=== PATIENT | female | born 1965 | race Caucasian/White ===

== ENCOUNTER 2023-09-11 08:10 | Observation (INO) | payer BC ==
--- NOTE | 2023-09-11 08:35 | ED ---
General Adult HPI - General Chief complaint: Chest Pain Stated complaint: chest pain Time Seen by Provider: 09/11/23 08:15 Source: patient, RN notes reviewed, old records reviewed Mode of arrival: ambulatory Limitations: no limitations - History of Present Illness Initial comments: 58-year-old female presenting for evaluation of chest pain. Symptom began on Monday which was 2 days prior described as a burning sensation which she thought was reflux. She did have radiation to the upper back with associated lightheadedness. Today symptoms worsened while driving and was associated with some radiation to the left arm as well as nausea. She has no prior history of CAD. - Related Data Allergies Allergy/AdvReac Type Severity Reaction Status Date / Time No Known Allergies Allergy Verified 09/11/23 08:16 Review of Systems ROS Statement: Those systems with pertinent positive or pertinent negative responses have been documented in the HPI. ROS Other: All systems not noted in ROS Statement are negative. Past Medical History Past Medical History: GERD/Reflux, Rheumatoid Arthritis (RA) Additional Past Medical History / Comment(s): Hernia History of Any Multi-Drug Resistant Organisms: None Reported Past Surgical History: Hernia Repair, Orthopedic Surgery Additional Past Surgical History / Comment(s): Cyst Past Psychological History: No Psychological Hx Reported Smoking Status: Never smoker Past Alcohol Use History: None Reported Past Drug Use History: None Reported General Exam Limitations: no limitations General appearance: alert, in no apparent distress Head exam: Present: atraumatic, normocephalic Eye exam: Present: normal appearance, PERRL ENT exam: Present: normal exam Neck exam: Present: normal inspection. Absent: tenderness, meningismus Respiratory exam: Present: normal lung sounds bilaterally. Absent: respiratory distress, wheezes Cardiovascular Exam: Present: regular rate, normal rhythm GI/Abdominal exam: Present: soft. Absent: distended, tenderness Extremities exam: Present: normal inspection, normal capillary refill. Absent: pedal edema Neurological exam: Present: alert, oriented X3, CN II-XII intact. Absent: motor sensory deficit Psychiatric exam: Present: normal affect, normal mood Skin exam: Present: warm, dry, intact Course Vital Signs 09/11/23 08:14 Temperature 98.2 F Pulse Rate 82 Respiratory 20 Rate Blood Pressure 142/93 O2 Sat by Pulse 99 Oximetry Medical Decision Making - Medical Decision Making Was pt. sent in by a medical professional or institution (Dr., PA, MANAGER OF SALES, urgent care, hospital, or care home...) When possible be specific @ -No Did you speak to anyone other than the patient for history (EMS, parent, family, police, friend...)? What history was obtained from this source @ -No Did you review nursing and triage notes (agree or disagree)? Why? @ -I reviewed and agree with nursing and triage notes Were old charts reviewed (outside hosp., previous admission, EMS record, old EKG, old radiological studies, urgent care reports/EKG's, care home records)? Report findings @ -No old charts were reviewed Differential Diagnosis (chest pain, altered mental status, abdominal pain women, abdominal pain men, vaginal bleeding, weakness, fever, dyspnea, syncope, h eadache, dizziness, GI bleed, back pain, seizure, CVA, palpatations, mental health, musculoskeletal)? @ -Differential Chest Pain: Stable Angina, Unstable Angina, STEMI, NSTEMI Aortic Dissection, Pneumothorax, Musculoskeletal, Esophageal Spasm GERD, Cholecystitis, Pancreatitis, Zoster, this is not meant to be an all-inclusive list. EKG interpreted by me (3pts min.). @Sinus rhythm low voltage, rate of 69, OK interval 147, QRS duration 82, QTc 385, T wave inversion both inferior and in precordial leads. No ST segment elevation. X-rays interpreted by me (1pt min.). @ -[Chest x-ray negative for acute cardiopulmonary findings CT interpreted by me (1pt min.). @ -None done U/S interpreted by me (1pt. min.). @ -None done What testing was considered but not performed or refused? (CT, X-rays, U/S, labs)? Why? @ -None What meds were consChest x-ray negative for acute cardiopulmonary findings not given or refused? Why? @ -None Did you discuss the management of the patient with other professionals (professionals i.e. , PA, MANAGER OF SALES, lab, RT, psych nurse, social service manager, application coordinator, teacher, military police officer, case assembler)? Give summary @ -No Was smoking cessation discussed for >3mins.? @ -No Was critical care preformed (if so, how long)? @ -No Were there social determinants of health that impacted care today? How? (Homelessness, low income, unemployed, alcoholism, drug addiction, transpor tation, low edu. Level, literacy, decrease access to med. care, halfway, rehab)? @ -No Was there de-escalation of care discussed even if they declined (Discuss DNR or withdrawal of care, Hospice)? DNR status @ -No What co-morbidities impacted this encounter? (DM, HTN, Smoking, COPD, CAD, Cancer, CVA, ARF, Chemo, Hep., AIDS, mental health diagnosis, sleep apnea, morbid obesity)? @ -None Was patient admitted / discharged? Hospital course, mention meds given and route, prescriptions, significant lab abnormalities, going to OR and other pertinent info. @ -58-year-old female with chest pain with typical features. EKG is showing T wave inversion in the precordial leads and inferiorly. There is no ST segment elevation. No baseline comparison EKG. Workup in the emergency department otherwise is unremarkable but the patient will require admission for chest pain rule out. Case discussed with sound physician group who will admit. Cardiology placed on consult. Undiagnosed new problem with uncertain prognosis? @ -No Drug Therapy requiring intensive monitoring for toxicity (Heparin, Nitro, Insulin, Cardizem)? @ -No Were any procedures done? @ -No Diagnosis/symptom? @ -Chest pain rule out Acute, or Chronic, or Acute on Chronic? @Acute Uncomplicated (without systemic symptoms) or Complicated (systemic symptoms)? @ -[Complicated Side effects of treatment? @ -No Exacerbation, Progression, or Severe Exacerbation? @ -No Poses a threat to life or bodily function? How? (Chest pain, [place], [place], pneumonia, PE, COPD, DKA, ARF, appy, cholecystitis, CVA, Diverticulitis, Homicidal, Suicidal, threat to staff... and all critical care pts) @ -[Yes, chest pain - Lab Data Result diagrams: 09/11/23 08:29 09/11/23 08:29 Lab Results 09/11/23 09/11/23 09/11/23 Range/Units 08:29 08:29 08:29 WBC 6.0 (3.8-10.6) k/uL RBC 4.30 (3.80-5.40) m/uL Hgb 14.1 (11.4-16.0) gm/dL Hct 41.5 (34.0-46.0) % MCV 96.7 (80.0-100.0) fL MCH 32.9 (25.0-35.0) pg MCHC 34.0 (31.0-37.0) g/dL RDW 12.4 (11.5-15.5) % Plt Count 189 (150-450) k/uL MPV 7.7 Neutrophils % 74 % Lymphocytes % 17 % Monocytes % 5 % Eosinophils % 2 % Basophils % 0 % Neutrophils # 4.4 (1.3-7.7) k/uL Lymphocytes # 1.0 (1.0-4.8) k/uL Monocytes # 0.3 (0-1.0) k/uL Eosinophils # 0.1 (0-0.7) k/uL Basophils # 0.0 (0-0.2) k/uL PT 10.8 (10.0-12.5) sec INR 1.0 (<1.2) APTT 25.3 (22.0-30.0) sec Sodium 135 L (137-145) mmol/L Potassium 4.0 (3.5-5.1) mmol/L Chloride 104 (98-107) mmol/L Carbon Dioxide 24 (22-30) mmol/L Anion Gap 7 mmol/L BUN 12 (7-17) mg/dL Creatinine 0.57 (0.52-1.04) mg/dL Est GFR (CKD-EPI)AfAm >90 (>60 ml/min/1.73 sqM) Est GFR (CKD-EPI)NonAf >90 (>60 ml/min/1.73 sqM) Glucose 112 H (74-99) mg/dL Calcium 9.6 (8.4-10.2) mg/dL Magnesium 2.0 (1.6-2.3) mg/dL Total Bilirubin 0.5 (0.2-1.3) mg/dL AST 29 (14-36) U/L ALT 24 (4-34) U/L Alkaline Phosphatase 93 (38-126) U/L Troponin I (0.000-0.034) ng/mL NT-Pro-B Natriuret Pep 135 pg/mL Total Protein 7.4 (6.3-8.2) g/dL Albumin 4.5 (3.5-5.0) g/dL Lipase 38 (23-300) U/L 09/11/23 Range/Units 08:29 WBC (3.8-10.6) k/uL RBC (3.80-5.40) m/uL Hgb (11.4-16.0) gm/dL Hct (34.0-46.0) % MCV (80.0-100.0) fL MCH (25.0-35.0) pg MCHC (31.0-37.0) g/dL RDW (11.5-15.5) % Plt Count (150-450) k/uL MPV Neutrophils % % Lymphocytes % % Monocytes % % Eosinophils % % Basophils % % Neutrophils # (1.3-7.7) k/uL Lymphocytes # (1.0-4.8) k/uL Monocytes # (0-1.0) k/uL Eosinophils # (0-0.7) k/uL Basophils # (0-0.2) k/uL PT (10.0-12.5) sec INR (<1.2) APTT (22.0-30.0) sec Sodium (137-145) mmol/L Potassium (3.5-5.1) mmol/L Chloride (98-107) mmol/L Carbon Dioxide (22-30) mmol/L Anion Gap mmol/L BUN (7-17) mg/dL Creatinine (0.52-1.04) mg/dL Est GFR (CKD-EPI)AfAm (>60 ml/min/1.73 sqM) Est GFR (CKD-EPI)NonAf (>60 ml/min/1.73 sqM) Glucose (74-99) mg/dL Calcium (8.4-10.2) mg/dL Magnesium (1.6-2.3) mg/dL Total Bilirubin (0.2-1.3) mg/dL AST (14-36) U/L ALT (4-34) U/L Alkaline Phosphatase (38-126) U/L Troponin I <0.012 (0.000-0.034) ng/mL NT-Pro-B Natriuret Pep pg/mL Total Protein (6.3-8.2) g/dL Albumin (3.5-5.0) g/dL Lipase (23-300) U/L Disposition Clinical Impression: Chest pain Disposition: ADMITTED IP TO THIS HOSP Condition: Stable Is patient prescribed a controlled substance at d/c from ED?: No Referrals: None,Stated [Primary Care Provider] - 1-2 days Time of Disposition: 09:26
[2023-09-11 08:47] LABS: Basophils % (A) 0 %; Eosinophils # (A) 0.1 k/uL (0-0.7); Eosinophils % (A) 2 %; HCT 41.5 % (34.0-46.0); HGB 14.1 gm/dL (11.4-16.0); Lymphocytes % (A) 17 %; MCH 32.9 pg (25.0-35.0); MCV 96.7 fL (80.0-100.0); Mean Platelet Volume 7.7; Monocytes # (A) 0.3 k/uL (0-1.0); Monocytes % (A) 5 %; Neutrophils # (A) 4.4 k/uL (1.3-7.7); Neutrophils % (A) 74 %; Platelet Count 189 k/uL (150-450); RDW 12.4 % (11.5-15.5)
[2023-09-11 08:53] LABS: Partial Thromboplastin Time 25.3 sec (22.0-30.0); Prothrombin Time 10.8 sec (10.0-12.5)
[2023-09-11 08:56] LABS: ALT 24 U/L (4-34); AST 29 U/L (14-36); African American GFR (CKD) >90 (>60 ml/min/1.73 sqM); Albumin 4.5 g/dL (3.5-5.0); Alkaline Phosphatase 93 U/L (38-126); Anion Gap 7 mmol/L; Blood Urea Nitrogen 12 mg/dL (7-17); Calcium 9.6 mg/dL (8.4-10.2); Carbon Dioxide 24 mmol/L (22-30); Chloride 104 mmol/L (98-107); Glucose 112 mg/dL (74-99); Lipase 38 U/L (23-300); Non-African American GFR(CKD) >90 (>60 ml/min/1.73 sqM); Sodium 135 mmol/L (137-145); Total Bilirubin 0.5 mg/dL (0.2-1.3); Total Protein 7.4 g/dL (6.3-8.2)
[2023-09-11] MEDS: FAMOTIDINE 20 MG/2 ML VIAL IV STA (08:56)
--- NOTE | 2023-09-11 09:02 | XR ---
EXAMINATION TYPE: XR chest 2V DATE OF EXAM: 09/11/2023 8:48 AM CLINICAL INDICATION:Female, 58 years old with history of Chest Pain; PHH COMPARISON: None TECHNIQUE: XR chest 2V Frontal and lateral views of the chest. FINDINGS: Lungs/Pleura: There is no evidence of pleural effusion, focal consolidation, or pneumothorax. Pulmonary vascularity: Unremarkable. Heart/mediastinum: Cardiomediastinal silhouette is unremarkable. Musculoskeletal: No acute osseous pathology. Scoliosis changes to the spine. Other findings: None IMPRESSION: No acute cardiopulmonary disease/process.
[2023-09-11 09:04] LABS: NT-Pro-B-Type Natriuretic Pept 135 pg/mL
[2023-09-11] MEDS ORDERED: NALOXONE 0.4 MG/ML 1 ML VIAL IV PRN (09:27)
[2023-09-11] MEDS ORDERED: NITROGLYCERIN SL TABS 0.4 MG TAB SUBLINGUAL PRN (09:28)
[2023-09-11] MEDS: ASPIRIN 325 MG TAB PO STA (10:28)
--- NOTE | 2023-09-11 10:29 | P.HPIM ---
History of Present Illness H&P Date: 09/11/23 58 year old F with PMH of hiatal hernia, seasonal allergies presents to the ED. Patient reports on Monday, she [place] when she experienced sudden onset lightheadedness and pain between her shoulder blades. Symptoms lasted a few minutes to resolved spontaneously. Since then, she has been having early satiety. This morning, she noticed a sharp stabbing pain in her left shoulder radiating down the arm associated with nausea and lightheadedness which prompted her to come to the ED. Pain is not exertional and not related to meals. She is a non smoker, does not drink EtOH. No family history of early CAD. Able to walk 1-2 miles without difficulty. In the ED, she underwent extensive evaluation. Vital signs stable. CBC and Coag panel within normal limits. CMP Na 135, glu 112. Mag 2.0. Troponin < 0.012. BNP 135. EKG sinus rhythm with TWI in II III aVF CXR no acute findings Patient is admitted for chest pain, rule out ACS and Cardiology evaluation. General: Non toxic, no distress, appears at stated age Derm: Warm, dry Head: Atraumatic, normocephalic, symmetric Eyes: EOMI, no lid lag, anicteric sclera Mouth: No lip lesion, mucus membranes moist Cardiovascular: S1S2 reg, no murmur Lungs: Decreased BS bilateral, no rhonchi, no rales, no accessory muscle use Ext: No gross muscle atrophy, no edema, no contractures Neuro: no focal neuro deficits Psych: Alert, oriented, appropriate affect Based on my assessment of this patient, this patient meets a high complexity le mark of care. Patient has an acute diagnosis of chest pain with TWI on EKG which poses a threat to life or bodily function. Chest pain: Trend Troponin/EKG to rule out ACS. ASA 325 mg PO x 1 in the ED. Telemetry monitoring. Echo. Cardiology consult. Obesity: Structured weight loss program. Hiatal hernia: Diagnosed on EGD in the past. Pepcid 40 mg PO QD. Seasonal allergies CODE STATUS: FULL CODE. DVT Prophylaxis: Lovenox SQ GI Prophylaxis: Pepcid PO Designated medical POA if patient is not able to make medical decisions for themselves: . I have reviewed the following product development consultant notes: I have reviewed the results of the following tests: As above. I have ordered the following tests: As above. I have discussed the care of this patient with the following independent historian: I have independently interpreted the following test below: EKG, CXR. I have discussed the management of this patient with the following physician: Discussed with ED physician in detail. Past Medical History Past Medical History: GERD/Reflux, Rheumatoid Arthritis (RA) Additional Past Medical History / Comment(s): Hernia History of Any Multi-Drug Resistant Organisms: None Reported Past Surgical History: Hernia Repair, Orthopedic Surgery Additional Past Surgical History / Comment(s): Cyst Past Psychological History: No Psychological Hx Reported Smoking Status: Never smoker Past Alcohol Use History: None Reported Past Drug Use History: None Reported Medications and Allergies Allergies Allergy/AdvReac Type Severity Reaction Status Date / Time No Known Allergies Allergy Verified 09/11/23 08:16 Physical Exam Vitals: Vital Signs Temp Pulse Resp BP Pulse Ox 09/11/23 08:14 98.2 F 82 20 142/93 99 Intake and Output 09/10/23 09/11/23 09/11/23 22:59 06:59 14:59 Other: Weight 74.843 kg Results CBC & Chem 7: 09/11/23 08:29 09/11/23 08:29 Labs: Abnormal Lab Results - Last 24 Hours (Table) 09/11/23 Range/Units 08:29 Sodium 135 L (137-145) mmol/L Glucose 112 H (74-99) mg/dL
--- NOTE | 2023-09-11 11:17 | P.CRDCN ---
History of Present Illness Consult date: 09/11/23 History of present illness: History of Present Illness: The patient is a 58-year-old female with no prior documented history of CAD who presented with left arm discomfort and nausea. On [place] she had bilateral arm weakness, felt weak and nauseated that lasted for few minutes. She has occasional episodes of dizziness that occurs randomly for the last few months but not associated with any other symptoms. This morning she woke up with left arm discomfort, felt nauseated and had persistent symptoms while driving to work so she came in to the emergency room. She has no prior documented history of CAD, she is average in her exercise tolerance and has no significant dyspnea or chest discomfort. She had no chest discomfort today. S he has no PND or orthopnea and she has rare peripheral edema. She has no history of hypertension, diabetes or smoking. There is no family history of premature CAD. She was told in the past that she has borderline hyperlipidemia. Echocardiogram about 5 years ago according to her it was unremarkable. In the emergency room her initial troponin is normal and her EKG shows nonspecific changes. She has a history of gastroesophageal reflux disease. Medications: Robaxin, Mucinex, turmeric Review of Systems: Respiratory: No history of asthma, bronchitis or recent cough. GI: No vomiting . No history of peptic ulcer disease. No recent GI bleed. He has nausea and symptoms of reflux : No hematuria or dysuria. Nervous System: No stroke or seizure. Physical Examination: 58-year-old female, alert oriented no apparent distress,Blood pressure 139/90, Heart rate 70 Head: Normocephalic. Eyes: Sclerae nonicteric. Neck: Good carotid upstroke, no bruit, no jugular venous distention. Lungs: Clear to auscultation. Heart: Regular rate and rhythm, S1-S2, no S3, no rub. No murmur. Abdomen: Soft, mild epigastric tenderness, positive bowel sounds no organomegaly. Extremities: No edema, intact distal pulses. Labs: Hemoglobin 14.1, potassium 4.0, BUN 12, creatinine 0.57, troponin less than 0.012, AST 29, ALT 24. Chest x-ray with no acute infiltrate EKG: Sinus mechanism normal axis with nonspecific ST-T wave changes Impression: 1. Arm discomfort with nausea, no clear evidence to suggest acute coronary syndrome with nonspecific ST-T wave changes 2. History of arthritis 3. History of gastric reflux 4. Borderline hyperlipidemia according to the patient Plan: 1. Obtain serial enzymes 2. Obtain an echocardiogram with Doppler 3. If no evidence of acute coronary syndrome proceed with stress echocardiogram 4. Depending on the results of her testing further recommendations will be made 5. Thank you for this consult we will follow with you Past Medical History Past Medical History: GERD/Reflux, Rheumatoid Arthritis (RA) Additional Past Medical History / Comment(s): Hernia History of Any Multi-Drug Resistant Organisms: None Reported Past Surgical History: Hernia Repair, Orthopedic Surgery Additional Past Surgical History / Comment(s): Cyst Past Psychological History: No Psychological Hx Reported Smoking Status: Never smoker Past Alcohol Use History: None Reported Past Drug Use History: None Reported Medications and Allergies Home Medications Medication Instructions Recorded Confirmed Type Black Seed Oil 1 dose PO DAILY 09/11/23 09/11/23 History Cranberry Fruit Extract [Cranberry] 500 mg PO DAILY 09/11/23 09/11/23 History Fexofenadine HCl [Indu Allergy] 180 mg PO DAILY PRN 09/11/23 09/11/23 History Multivitamins, Thera [Multivitamin 1 tab PO DAILY 09/11/23 09/11/23 History (formulary)] Naproxen Sodium [Aleve] 220 mg PO BID PRN 09/11/23 09/11/23 History Turmeric Root Extract [Turmeric] 500 mg PO DAILY 09/11/23 09/11/23 History guaiFENesin [Mucinex] 600 mg PO Q12H PRN 09/11/23 09/11/23 History methocarbamoL [Robaxin] 500 mg PO DAILY PRN 09/11/23 09/11/23 History Allergies Allergy/AdvReac Type Severity Reaction Status Date / Time No Known Allergies Allergy Verified 09/11/23 10:34 Physical Exam Vitals: Vital Signs Temp Pulse Resp BP Pulse Ox 09/11/23 10:24 78 18 139/90 96 09/11/23 08:14 98.2 F 82 20 142/93 99 Intake and Output 09/10/23 09/11/23 09/11/23 22:59 06:59 14:59 Other: Weight 74.843 kg Results 09/11/23 08:29 09/11/23 08:29 Cardiac Enzymes 09/11/23 09/11/23 Range/Units 08:29 08:29 AST 29 (14-36) U/L Troponin I <0.012 (0.000-0.034) ng/mL Coagulation 09/11/23 Range/Units 08:29 PT 10.8 (10.0-12.5) sec APTT 25.3 (22.0-30.0) sec CBC 09/11/23 Range/Units 08:29 WBC 6.0 (3.8-10.6) k/uL RBC 4.30 (3.80-5.40) m/uL Hgb 14.1 (11.4-16.0) gm/dL Hct 41.5 (34.0-46.0) % Plt Count 189 (150-450) k/uL Comprehensive Metabolic Panel 09/11/23 Range/Units 08:29 Sodium 135 L (137-145) mmol/L Potassium 4.0 (3.5-5.1) mmol/L Chloride 104 (98-107) mmol/L Carbon Dioxide 24 (22-30) mmol/L BUN 12 (7-17) mg/dL Creatinine 0.57 (0.52-1.04) mg/dL Glucose 112 H (74-99) mg/dL Calcium 9.6 (8.4-10.2) mg/dL AST 29 (14-36) U/L ALT 24 (4-34) U/L Alkaline Phosphatase 93 (38-126) U/L Total Protein 7.4 (6.3-8.2) g/dL Albumin 4.5 (3.5-5.0) g/dL Current Medications Generic Name Dose Route Start Last Admin Trade Name Freq PRN Reason Stop Dose Admin Acetaminophen 650 mg 09/11/23 09:27 Acetaminophen Tab 325 Mg Tab PO Q6HR PRN Mild Pain or Fever > 100.5 Enoxaparin Sodium 40 mg 09/12/23 09:00 Enoxaparin 40 Mg/0.4 Ml Syringe SQ DAILY [facility] Famotidine 40 mg 09/12/23 09:00 Famotidine 20 Mg Tab PO DAILY [facility] Naloxone HCl 0.2 mg 09/11/23 09:27 Naloxone 0.4 Mg/Ml 1 Ml Vial IV Q2M PRN Opioid Reversal Nitroglycerin 0.4 mg 09/11/23 09:28 Nitroglycerin Sl Tabs 0.4 Mg Tab SUBLINGUAL Q5M PRN Chest Pain Intake and Output 09/10/23 09/11/23 09/11/23 22:59 06:59 14:59 Other: Weight 74.843 kg Patient Weight 09/12/23 06:59 Weight 74.843 kg 09/11/23 08:29 09/11/23 08:29
[2023-09-11 15:41] LABS: Chol/HDL Ratio 2.92 Ratio; LDL Cholesterol,Calculated 124.2 mg/dL (0.0-131.0)
[2023-09-11] MEDS: ACETAMINOPHEN TAB 325 MG TAB PO PRN (21:36)
[2023-09-12] MEDS: FAMOTIDINE 20 MG TAB PO SCH (08:47)
[2023-09-12] MEDS: ASPIRIN 81 MG PO SCH (08:47)
[2023-09-12] MEDS: ENOXAPARIN 40 MG/0.4 ML SYRINGE SQ SCH (08:48)
--- NOTE | 2023-09-12 10:42 | P.PN ---
Subjective Progress Note Date: 09/12/23 History of Present Illness: The patient is a 58-year-old female with no prior documented history of CAD who presented with left arm discomfort and nausea. On [place] she had bilateral arm weakness, felt weak and nauseated that lasted for few minutes. She has occasional episodes of dizziness that occurs randomly for the last few months but not associated with any other symptoms. This morning she woke up with left arm discomfort, felt nauseated and had persistent symptoms while driving to work so she came in to the emergency room. She has no prior documented history of CAD, she is average in her exercise tolerance and has no significant dyspnea or chest discomfort. She had no chest discomfort today. She has no PND or orthopnea and she has rare peripheral edema. She has no history of hypertension, diabetes or smoking. There is no family history of premature CAD. She was told in the past that she has borderline hyperlipidemia. Echocardiogram about 5 years ago according to her it was unremarkable. In the emergency room her initial troponin is normal and her EKG shows nonspecific changes. She has a history of gastroesophageal reflux disease. Medications: Robaxin, Mucinex, turmeric Labs: Hemoglobin 14.1, potassium 4.0, BUN 12, creatinine 0.57, troponin less than 0.012, AST 29, ALT 24. Chest x-ray with no acute infiltrate EKG: Sinus mechanism normal axis with nonspecific ST-T wave changes 2/ Patient is seen today in follow-up on the observation unit. She is scheduled for stress echo and echocardiogram today. She denies having any arm pain, no shortness of breath, no chest pain. She states she slept well last night. Blood pressure 134/79, heart rate 89, pulse ox 97% on room air. Triglycerides 138, cholesterol 231, LDL 124, HDL 79. Troponins have been negative x 3. Physical Examination: 58-year-old female, alert oriented no apparent distress Head: Normocephalic. Eyes: Sclerae nonicteric. Neck: Good carotid upstroke, no bruit, no jugular venous distention. Lungs: Clear to auscultation. Heart: Regular rate and rhythm, S1-S2, no S3, no rub. No murmur. Abdomen: Soft, mild epigastric tenderness, positive bowel sounds no organomega ly. Extremities: No edema, intact distal pulses. Impression: 1. Arm discomfort with nausea, no clear evidence to suggest acute coronary syndrome with nonspecific ST-T wave changes 2. History of arthritis 3. History of gastric reflux 4. Borderline hyperlipidemia according to the patient Plan: Obtain an echocardiogram with Doppler Patient scheduled for stress echocardiogram today If stress test shows no signs of ischemia, patient is cleared for discharge and no further cardiac workup at this time. Nurse practitioner note has been reviewed, I agree with documented findings and plan of care. Patient was seen and examined. Objective - Vital Signs Vital signs: Vital Signs Temp 97.6 F 09/12/23 07:00 Pulse 89 09/12/23 07:00 Resp 16 09/12/23 07:00 BP 134/79 09/12/23 07:00 Pulse Ox 97 09/12/23 07:00 FiO2 Intake & Output 09/11/23 09/12/23 09/12/23 18:59 06:59 18:59 Weight 74.843 kg Other: Voiding Method Toilet # Voids 2 - Labs CBC & Chem 7: 09/11/23 08:29 09/11/23 08:29 Labs: Abnormal Lab Results - Last 24 Hours (Table) 09/11/23 09/11/23 Range/Units 08:29 12:05 Sodium 135 L (137-145) mmol/L Glucose 112 H (74-99) mg/dL Cholesterol 231.00 H (0.00-200.00) mg/dL HDL Cholesterol 79.20 H (40.00-60.00) mg/dL
[2023-09-12] MEDS: MAG HYDROX/AL HYDROX/SIMETH 30 ML, HYOSCYAMINE ELIXIR 10 ML, LIDOCAINE VISCOUS 10 ML PO ONE (11:52)
[2023-09-12] MEDS: ATORVASTATIN 20 MG TAB PO SCH (11:52)
--- NOTE | 2023-09-12 12:24 | CA ---
Transthoracic Echo Report Name: Esme Hurt Age: 58 Gender: F : 1965 Exam Date: 09/12/2023 08:12 Exam Location: [facility] Ht (in): 65 Wt (lb): 165 Ordering Physician: Andrés Rodriguez MD Attending/Referring Phys: Home Housekeeper Rita Abreu RDCS Procedure CPT: Indications: CP Cardiac Hx: Technical Quality: Good Contrast 1: Total Dose (mL): Contrast 2: Total Dose (mL): MEASUREMENTS (Male / Female) Normal Values 2D ECHO LV Diastolic Diameter PLAX 4.5 cm 4.2 - 5.9 / 3.9 - 5.3 cm LV Systolic Diameter PLAX 2.9 cm IVS Diastolic Thickness 1.1 cm 0.6 - 1.0 / 0.6 - 0.9 cm LVPW Diastolic Thickness 0.6 cm 0.6 - 1.0 / 0.6 - 0.9 cm LV Relative Wall Thickness 0.4 Aortic Root Diameter 2.8 cm LA Systolic Diameter LX 3.1 cm 3.0 - 4.0 / 2.7 - 3.8 cm DOPPLER AV Peak Velocity 111.6 cm/s AV Peak Gradient 5.0 mmHg LVOT Peak Velocity 75.4 cm/s LVOT Peak Gradient 2.3 mmHg Mitral E Point Velocity 98.2 cm/s Mitral A Point Velocity 102.6 cm/s Mitral E to A Ratio 1.0 MV Deceleration Time 164.5 ms MV E' Velocity 5.7 cm/s Mitral E to MV E' Ratio 17.2 PV Peak Velocity 56.0 cm/s PV Peak Gradient 1.3 mmHg FINDINGS Left Ventricle Mildly increased septal wall thickness. Left ventricular ejection fraction is estimated at 55-60%.normal left ventricular wall motion. Left ventricular cavity size normal. Right Ventricle Normal right ventricular size and function. Right Atrium Normal right atrial size. Left Atrium Normal left atrial size. Mitral Valve No mitral stenosis or prolapse.trace to mild mitral regurgitation. Aortic Valve No aortic valve stenosis or regurgitation.trileaflet aortic valve. Tricuspid Valve No tricuspid regurgitation.structurally normal tricuspid valve. Pulmonic Valve Pulmonic valve not well visualized. Pericardium No pericardial effusion. Aorta Normal size aortic root and proximal ascending aorta. CONCLUSIONS 1. Normal left ventricular size and systolic function 2. Trace to mild mitral regurgitation Previewed by: Dr. Lila Shepherd MD (Electronically Signed) Final Date: 12 September 2023 12:23
--- NOTE | 2023-09-12 13:10 | CA ---
Stress Echo Report Esme Hurt Age: 58 Gender: F : 1965 Exam Date: 09/12/2023 11:11 Exam Location: [facility] Ht (in): 65 Wt (lb): 160 Ordering Physician: Lila Shepherd MD ([id number]) Referring Physician: NICK MISHRA,, Outsole Paraffiner: Zahraa Garcia RDCS Technologist Procedure CPT: Indication: Chest Pain ICD-9 Codes: Rhythm: Patient History: CHEST PAIN, DIFFICULTY IN BREATHING, PALPITATIONS, FAMILY HX OF HEART DISEASE, Cardiac Medications: Medications in past 24 hours: Contrast: Definity Stress Results Protocol: Ramsey Total dose(mL): 8 Exercise Duration (min:sec): 9:[address] Depression (mm): Angina Score: Aparicio Score: METS: 10.3 Resting HR: 92 Resting BP: 110 / 97 Peak HR: 162 Peak BP: 167 / 78 Max Predicted HR: 160 101 % Max Predicted HR Target HR: 136 Double Product: [id number] Stress Summary: BP Response: Reason for Termination: TARGET HR/ MAX EXERTION Cardiac Symptoms: NO SYMPTOMS ECG Analysis Resting ECG: Normal sinus rhythm, Minor resting ST/T wave changes Stress ECG: Exaggeration of the baseline ST abnormality Arrhythmia: None Echo Analysis Resting Echo: Normal resting echocardiogram. Peak Echo Analysis: Normal treadmill stress echocardiogram. MEASUREMENTS (Male/Female) Normal Values CONCLUSIONS 1. Good exercise tolerance 2. Nondiagnostic echocardiographic stress testing secondary to baseline EKG abnormality 3. Normal stress echocardiogram with no evidence of stress induced ischemia Dr. Lila Shepherd MD (Electronically Signed) Final Date: 12 September 2023 13:09
[2023-09-12 14:33] VITALS: BP 103/68; PULSE 91; RESP 14; TEMP 97.9
--- NOTE | 2023-09-12 14:46 | P.DS ---
Providers Date of admission: 09/11/23 09:27 Expected date of discharge: 09/12/23 Attending physician: Andrés Rodriguez MD Consults: 09/11/23 09:27 Consult Physician Routine Consulting Provider: Lila Shepherd Consult Reason/Comments: CP Do you want consulting provider notified?: Yes Primary care physician: Alisha Adair Hospital Course: Discharge Diagnosis: Chest pain/pain between shoulder blades and left shoulder pain, acute coronary event ruled out GERD, patient discharged home on Pepcid 40 mg daily for treatment of her gastric reflux and instructed she will need to follow-up with public speaker, Dr. Tafoya for further evaluation and discussion of possible EGD. Rheumatoid arthritis, continue daily medication regimen with Robaxin 500 mg daily as needed for muscle spasms/pain Hospital Course: Patient is a very pleasant 58-year-old female with a past medical history of rheumatoid arthritis, GERD, and hiatal hernia status postrepair. She presented to the emergency department with complaints of experiencing lightheadedness, pain between her shoulder blades, and early satiety. Upon arrival to the emergency department, patient underwent full evaluation. Vital signs upon arrival show blood pressure 142/93, heart rate 82, respiratory rate 20, temp 98.2 F, and SpO2 of 99% on room air. EKG was completed showing normal sinus rhythm at 69 bpm with T wave inversion in inferior leads II and aVF. Chest x- ray completed negative for acute cardiopulmonary process. Labs completed and reviewed. CBC, coagulation profile, and CMP were all unremarkable. Troponin was negative at less than 0.012 and proBNP was 135. Lipase also normal at 38. Patient was admitted under our services with consultation to cardiology. Troponins trended overnight are negative at less than 0.012 x 3 draws. Echocardiogram was completed showing a preserved EF of 55 to 60% with trace to mild mitral regurgitation. Stress echo also completed showing good exercise tolerance and reported to be a normal stress echocardiogram with no evidence of stress-induced ischemia. Patient cleared from cardiac perspective for discharge. Medically, patient is stable at this time and is stable for discharge home. Patient will need to follow-up outpatient with the PCP, kristina ologist in 1 to 2 weeks, and recommend outpatient follow-up with a public speaker for further evaluation and follow-up on previously known hiatal hernia. Patient was started on Pepcid 40 mg daily for treatment of her gastric reflux. Physical exam: Vital signs reviewed and stable. General: Nontoxic, no distress and appears stated age. Derm: Skin warm and dry, normal coloration for ethnicity. Head: Atraumatic, normocephalic and symmetric. Eyes: EOMs intact, no lid lag, and anicteric sclera Mouth: no lip lesions, mucus membranes moist Cardiovascular: regular rate and rhythm with normal S1S2, no murmur, positive posterior tibial pulses bilaterally, and cap refill < 2 seconds. Lungs: Respirations even, regular, and unlabored on room air. Lungs CTA bilaterally, no rhonchi, no rales, no wheezing, and no accessory muscle usage. Abdominal: soft, nontender to palpation, no guarding, no appreciable organomegaly Ext: ROM intact. No gross muscle atrophy, no edema, no contractures Neuro: Speech clear, face symmetrical and CN II-XII grossly intact with no noted focal neuro deficits Psych: Alert and oriented to person, place, time, and situation. Appropriate and pleasant affect. A total of 33 minutes of time were spent preparing this complex discharge summary. Pt was discharged on 09/12/2023 at 2:33 PM. Patient was seen independently by Nurse Practitioner. This document was prepared using [employer] dictation software. Please allow for errors in cutter inspector while rare they do occur. Patient Condition at Discharge: Stable Plan - Discharge Summary Discharge Rx Participant: No New Discharge Prescriptions: New Famotidine [Pepcid] 40 mg PO DAILY 60 Days #120 tab Continue Fexofenadine HCl [Indu Allergy] 180 mg PO DAILY PRN PRN Reason: Allergy Symptoms guaiFENesin [Mucinex] 600 mg PO Q12H PRN PRN Reason: Congestion Turmeric Root Extract [Turmeric] 500 mg PO DAILY Multivitamins, Thera [Multivitamin (formulary)] 1 tab PO DAILY methocarbamoL [Robaxin] 500 mg PO DAILY PRN PRN Reason: Muscle Spasm Cranberry Fruit Extract [Cranberry] 500 mg PO DAILY Black Seed Oil 1 dose PO DAILY Discontinued Naproxen Sodium [Aleve] 220 mg PO BID PRN PRN Reason: Pain Discharge Medication List Black Seed Oil 1 dose PO DAILY 09/11/23 [History] Cranberry Fruit Extract [Cranberry] 500 mg PO DAILY 09/11/23 [History] Fexofenadine HCl [Indu Allergy] 180 mg PO DAILY PRN 09/11/23 [History] Multivitamins, Thera [Multivitamin (formulary)] 1 tab PO DAILY 09/11/23 [History] Turmeric Root Extract [Turmeric] 500 mg PO DAILY 09/11/23 [History] guaiFENesin [Mucinex] 600 mg PO Q12H PRN 09/11/23 [History] methocarbamoL [Robaxin] 500 mg PO DAILY PRN 09/11/23 [History] Famotidine [Pepcid] 40 mg PO DAILY 60 Days #120 tab 09/12/23 [Rx] Follow up Appointment(s)/Referral(s): Lila Shepherd MD [STAFF PHYSICIAN] - 1 Week Darinel Soto III, MD [STAFF PHYSICIAN] - 1 Week (Recommend establishing care with PCP, this provider is highly recommended and should be able to get you in within the next 1 to 2 weeks) Lakeisha Causey MD [REFERRING] - 1 Week (Recommend establishing care with PCP, this provider is highly recommended and should be able to get you in within the next 1 to 2 weeks) Eugenie Bartlett MD [STAFF PHYSICIAN] - 2 Weeks (Recommend scheduling an appointment with public speaker for further evaluation and possible EGD) Activity/Diet/Wound Care/Special Instructions: Activity: As tolerated. Take breaks as needed. Diet: Heart healthy and carb consistent diet. Avoid salts, or foods with hidden salts such as canned or boxed foods and frozen dinners. Extra salt makes your heart work harder and traps the fluid in your body for longer. Special Instructions: Take all of your medications as directed and remember to keep all of your doctor's appointments and follow-up as needed. Thank you for allowing us to participate in your care, it was truly a pleasure having you for our patient!!!
== END 2023-09-12 15:38 | disposition home or self-care (01) ==
LOC: EC 08:10 → 6NMEDSUR 09:27
PROVIDERS: ADMIT Family Medicine; ATTEND Family Medicine
DX: R07.89 Other chest pain (principal); K21.9 Gastro-esophageal reflux disease without esophagitis; I34.0 Nonrheumatic mitral (valve) insufficiency; M06.9 Rheumatoid arthritis, unspecified; M79.602 Pain in left arm; M54.6 Pain in thoracic spine; M25.512 Pain in left shoulder; R11.0 Nausea; R42 Dizziness and giddiness; R53.1 Weakness; M62.838 Other muscle spasm; E78.9 Disorder of lipoprotein metabolism, unspecified; J30.2 Other seasonal allergic rhinitis; R68.81 Early satiety; E66.9 Obesity, unspecified; Z68.27 Body mass index [BMI] 27.0-27.9, adult; Z79.899 Other long term (current) drug therapy; Z98.890 Other specified postprocedural states
CPT/HCPCS: 96372; 96374; 99285; 36415; 93005; 93306; 93351; 83880; 80061; 80053; 83690; 83735; 84484; 85025; 85610; 85730; 71046; G0378 ×2; J1650; J3490; Q9957